=== PATIENT | female | born 1990 | race Caucasian/White ===

== ENCOUNTER → 2021-02-22 | Day surgery (SDC) | payer OTHER ==
[2021-02-19 12:16] VITALS: BMI 49.9
[~2021-02-22] MED LIST: SODIUM CHLORIDE 0.9% 1,000 ML IV SCH
[2021-02-22 08:29] VITALS: BP 159/94; PULSE 103; RESP 16; TEMP 98.8
--- NOTE | 2021-02-22 17:07 | P.EPPROC ---
- EP Procedure Note Electrophysiology Procedure Note: Diagnosis Recurrent presyncope, syncope Twelve-lead EKG shows sinus rhythm normal CO narrow QRS normal ST segments Normal QT interval No delta waves no epsilon waves normal ST segments in the precordial leads Tilt table test performed Baseline blood pressure 153/89 mmHg, Baseline heart rate in the 90s sinus rhythm Patient was tilted upright at an angle of 70 per protocol her blood pressure remained elevated through the procedure Heart rate remained in the 90s up to 100 beats a minute No change in heart rate and blood pressure noted to upright tilting Impression Normal twelve-lead EKG Hypertension No evidence for neuro cardiac syncope No evidence for dysautonomia or postural tachycardia syndrome
== END ==
LOC: CATHEP 08:02
PROVIDERS: ATTEND Internal Medicine Clinical Cardiac Electrophysiology
DX: R55 Syncope and collapse (principal); I10 Essential (primary) hypertension
CPT/HCPCS: 81025; 93660

== ENCOUNTER → 2021-03-31 | Outpatient (CLI) | payer OTHER ==
[2021-03-31 15:34] VITALS: BP 129/90; PULSE 94; RESP 18; TEMP 98.5; BMI 52.0
--- NOTE | 2021-03-31 16:22 | P.HPBAR ---
Bariatric H&P - History & Physicial H&P Date: 03/31/21 History & Physicial: Visit/CC: initial visit Patient initial contact: Initial weight: Initial weight in pounds: Height: 5 ft 6 in Initial BMI: Last weight: Current weight: 146.057 kg Current weight in pounds: 322.00 Current BMI: 52.0 [place] body weight (based on NIH guidelines): 58.967 kg Excess body weight loss: The patient is a 30 year-old F who presents for Bariatric Assessment. She comes in looking into weight loss surgery. She has a service dog. She is looking the gastric bypass. Her mother had the gastric bypass. 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 She was gaining weight of 120 pounds last year. She was on Metformin and unable to tolerate. She bleeds with control. She has lower back pain. She has Erhlos Danlos syndrome. All joint problems. Her father with strokes and blood clots with grandmother with strokes. She bleeds easily and has spontaneous nose bleeds. 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 She had a panel ran in August 2020. She is in the hypermobility. She is pending. Master Machinist to review. She is from [facility]. [facility] [place] Past Medical History Past Medical History: GERD/Reflux, Osteoarthritis (OA) Additional Past Medical History / Comment(s): OCCASIONAL GERD., BACK PAIN., STATES NOL[place]-DANLOS SYNDROME., FREQUENT UTI'S., STATES DIZZINESS, PASSES OUT AND FAST HEART RATE WITH CHANGE IN POSITION OR ACTIVITY., SEE CARDIOLOGY H & P. . History of Any Multi-Drug Resistant Organisms: MRSA Year Discovered:: 2019? MDRO Source:: URINE Additional Past Surgical History / Comment(s): RIGHT KNEE CAP SURGERY, CYSTOSCOPY Past Anesthesia/Blood Transfusion Reactions: Previous Problems w/ Anesthesia Additional Past Anesthesia/Blood Transfusion Reaction / Comm: 03/2021 - no history of blood transfusions. pt states she does metablize anesthesia quickly. Past Psychological History: Anxiety, Depression Smoking Status: Never smoker Past Alcohol Use History: None Reported Past Drug Use History: Marijuana Additional Drug Use History / Comment(s): utilizes edible marijuana every night. - Past Family History Mother Family Medical History: No Reported History Surgical - Exam Vital Signs Temp Pulse Resp BP 98.5 F 94 18 129/90 03/31/21 15:30 03/31/21 15:30 03/31/21 15:30 03/31/21 15:30 Bariatric Checklist Checklist: Plan: Checklist: EGD: 1. Hiatal hernia: 2. H. Pylori: HgbA1c: Vitamin D: Smoking: Primary care physician referral: Dr. Mukherjee Psychiatry clearance: Cardiology clearance: Sleep study: Diet journal: VTE risk score: VTE risk level: Rehab needs at discharge:
[2021-03-31 17:40] LABS: HCT 41.6 % (34.0-46.0); HGB 13.3 gm/dL (11.4-16.0); MCV 84.5 fL (80.0-100.0); Mean Platelet Volume 8.5; Platelet Count 260 k/uL (150-450); RBC 4.92 m/uL (3.80-5.40); RDW 14.3 % (11.5-15.5); WBC 8.6 k/uL (3.8-10.6)
[2021-03-31 17:57] LABS: Partial Thromboplastin Time 22.5 sec (22.0-30.0); Prothrombin Time 10.4 sec (9.0-12.0)
[2021-04-01 07:05] LABS: % Iron Saturation 14.13 (12.00-45.00); ALT 28 U/L (8-44); AST 20 U/L (13-35); African American GFR (CKD) 100.8 (60.0-200.0); Albumin 4.8 g/dL (3.8-4.9); Alkaline Phosphatase 120 U/L (41-126); BUN/Creat Ratio 18.11 Ratio (12.00-20.00); Blood Urea Nitrogen 16.3 mg/dL (9.0-27.0); Calcium 9.9 mg/dL (8.7-10.3); Carbon Dioxide 26.2 mmol/L (21.6-31.8); Chloride 100 mmol/L (96-109); Chol/HDL Ratio 4.44 Ratio; Ferritin 84.5 ng/mL (10.0-291.0); Glucose 103 mg/dL (70-110); Iron 63 ug/dL (50-170); LDL Cholesterol,Calculated 142.3 mg/dL (0.0-131.0); Magnesium 1.8 mg/dL (1.5-2.4); Phosphorus 3.3 mg/dL (2.4-5.1); Potassium 4.4 mmol/L (3.5-5.5); Sodium 137 mmol/L (135-145); Total Bilirubin <0.20 mg/dL (0.30-1.20); Total Iron Binding Capacity 444 ug/dL (228-460); Total Protein 7.8 g/dL (6.2-8.2)
[2021-04-01 13:23] LABS: Zinc, Serum 80 ug/dL (60-130)
[2021-04-02 06:47] LABS: Vitamin A 62 ug/dL (38-106)
[2021-04-02 13:20] LABS: Vit B1(Thiamine) 72 ug/L (38-122)
[2021-04-02 16:07] LABS: Anabasine Urine <2.0 ng/mL (<2.0)
== END ==
LOC: BARWHC3 14:29
PROVIDERS: ATTEND Surgery Plastic and Reconstructive Surgery
DX: E66.01 Morbid (severe) obesity due to excess calories (principal); E89.1 Postprocedural hypoinsulinemia; D50.8 Other iron deficiency anemias; E44.0 Moderate protein-calorie malnutrition; E55.9 Vitamin D deficiency, unspecified; K74.1 Hepatic sclerosis; N19 Unspecified kidney failure; K50.90 Crohn's disease, unspecified, without complications; M19.90 Unspecified osteoarthritis, unspecified site; F41.9 Anxiety disorder, unspecified; F32.9 Major depressive disorder, single episode, unspecified; Z68.43 Body mass index [BMI] 50.0-59.9, adult
CPT/HCPCS: 84255; 84134; 84425; 80061; 80053; 82607; 82728; 82525; 82746; 83540; 83550; 83735; 84100; 84443; 84590; 84630; 85027; 85610; 85730; 82306; 83970; 83036; 80307; 36415; G0480; G0482; G0463; 80323; 99203